=== PATIENT | male | born 1970 | race Caucasian/White ===

== ENCOUNTER 2019-12-05 17:22 | Emergency (ER) | payer MEDICAID ==
[~2019-12-05] VITALS: Ht 185.4 cm; Wt 80.0 kg
[2019-12-05] MEDS ORDERED: LORazepam 2 MG/ML, 1ML IVPush ONE ×2 (17:30→20:00)
--- NOTE | 2019-12-05 17:30 | NUR ---
THIS IS A M PT UNKNOWN NAME OR AGE AT THIS TIME. PT BIB [facility] FOR [facility]ED [facility]. PT WAS AGGRESSIVE AND BITING PERSONEL. ACCORDING TO [facility] PT WAS BROUGHT DOWN BY 4 SALES CLERK SUPERVISOR. HE REPEATEDLY STATED THAT HE WAS EFREM. RECEIVED 400 KETAMINE AND 2 VERSED BY EMS. PT IS CURRENTLY SLEEPING ON GURNEY IN RESTRAINTS FOR HIS SAFETY AND WITH SPIT REED IN PLACE. PLACED ON MONITORS. WILL CONTINUE TO MONITOR.
--- NOTE | 2019-12-05 17:35 | NUR ---
PT IS UNABLE TO ANSWER ASSESSMENT QUESTIONS AT THIS TIME.
--- NOTE | 2019-12-05 17:45 | NUR ---
LAB IN ROOM.
[2019-12-05 18:00] LABS: BASOPHILS # (AUTO) 0.01 x10^3/uL (0-0.1); BASOPHILS % (AUTO) 0 % (0-1); EOSINOPHILS # (AUTO) 0.01 x10^3/uL (0-0.4); EOSINOPHILS % (AUTO) 0 % (1-7); LYMPHOCYTES # (AUTO) 0.83 x10^3/uL (1-3.4); LYMPHOCYTES % (AUTO) 8 % (22-44); MD NO; MEAN CORPUSCULAR HEMOGLOBIN 31.3 pg (27.5-34.5); MEAN CORPUSCULAR HGB CONC 33.5 g/dL (33.2-36.2); MEAN CORPUSCULAR VOLUME 93.5 fL (81-97); MONOCYTES # (AUTO) 0.82 x10^3/uL (0.2-0.8); MONOCYTES % (AUTO) 8 % (2-9); NEUTROPHILS # (AUTO) 9.11 x10^3/uL (1.8-6.8); NEUTROPHILS % (AUTO) 85 % (42-75); PLATELET COUNT 232 x10^3/uL (130-400); RED BLOOD COUNT 3.89 x10^6/uL (4.38-5.82); RED CELL DISTRIBUTION WIDTH 14.5 % (9.4-14.8)
[2019-12-05 18:14] LABS: ALBUMIN 3.2 g/dL (3.4-5.0); ANION GAP 7 mmol/L (5-15); CALCIUM 8.4 mg/dL (8.5-10.1); CHLORIDE 109 mmol/L (98-107); SALICYLATE LEVEL 2.7 mg/dL (2.8-20.0)
[2019-12-05 18:16] LABS: ALANINE AMINOTRANSFERASE 33 U/L (12-78); ALKALINE PHOSPHATASE 94 U/L (45-117); BILIRUBIN,TOTAL 0.6 mg/dL (0.2-1.0); CREATININE 0.94 mg/dL (0.7-1.3); TOTAL PROTEIN 6.8 g/dL (6.4-8.2)
--- NOTE | 2019-12-05 18:20 | NUR ---
PT STARTING TO MOVE AROUND IN BED. NOT ANSWERING QUESTIONS AT THIS TIME. INFORMED PT OF WHERE HE IS AND POC. PT QUICKLY WENT BACK TO SLEEP. VSS. WILL CONTINUE TO MONITOR
[2019-12-05] MEDS ORDERED: PLEASE ENTER ALLERGIES MC SCH (18:30)
[2019-12-05] MEDS ORDERED: LORazepam 2 MG/ML, 1ML ONE ×2 (18:40→19:46)
--- NOTE | 2019-12-05 18:57 | NUR ---
PT MEDICATED PER EMAR. PT RESTING ON GURNEY. KAELN.
[2019-12-05] MEDS ORDERED: ZIPRASIDONE 20 MG INJ IM ONE ×2 (19:45→20:00)
--- NOTE | 2019-12-05 21:03 | NUR ---
REPORT GIVEN TO AUSTIN MAE. TRANSFERED TO ROOM 41.
--- NOTE | 2019-12-05 21:23 | NUR ---
RECEIVED RPT FROM RN, ASSUMED CARE OF PT. MONITOR IN PLACE, 15 MIN CHECKS. PT IN 4 POINT [facility] RESTRAINTS. PT RESTING WITH EYES CLOSED AT THIS TIME.
--- NOTE | 2019-12-05 21:29 | NUR ---
put belongings in lock up. one black backpack, one pt belonging bag. one pocket knife sent to security and cell phone, keys, shoes and full backpack of belongings in there. 2 bags total.
[2019-12-05] MEDS ORDERED: LORazepam 2 MG/ML, 1ML IVPush PRN (22:00)
--- NOTE | 2019-12-05 22:25 | NUR ---
UA OBTAINED STRAIGHT CATH. PT TOLERATED WELL. SAMPLE SENT TO LAB.
[2019-12-05 22:36] LABS: MICROSCOPIC INDICATED
[2019-12-05 22:45] LABS: AMPHETAMINE SCREEN, URINE Positive (Negative); BARBITURATE SCREEN, URINE Negative (Negative); BENZODIAZEPINE SCREEN, URINE Positive (Negative); CANNABINOID SCREEN, URINE Positive (Negative); COCAINE SCREEN, URINE Negative (Negative); METHADONE SCREEN, URINE Negative (Negative); OPIATE SCREEN, URINE Positive (Negative)
--- NOTE | 2019-12-05 23:00 | NUR ---
REPORT FROM CARMELITA MCARTHUR. PT RESTING IN [facility] WITH EYES OPEN. FREQUENT MOVEMENTS OF ARMS/LEGS. SPIT REED IN PLACE. RESTRAINTS X4. +CMS. BP/SPO2/ECG MONITORING IN PLACE. NSR ON MONITOR. RR WNL.
--- NOTE | 2019-12-06 01:12 | NUR ---
PT CONTINUES TO REST IN [facility]. VOLUNTARY MOVEMENTS OF ALL EXTREMITIES NOTED. RLE W SUPERFICIAL WOUNDS, RESTRAINTS RELEASED FROM LLE AND LUE. RUE REMAINS IN RESTRAINTS TO AVOID SELF DC OF IV. RUE LOOSENED. +CMS OF ALL EXTREMITIES. ERP UPDATED. PER ERP, 1L NS HUNG. RESPIRATIOS EVEN AND UNLABORED. ALL VS WNL. SITTER REMAINS PRESENT AND IS UPDATED TO STATUS OF RESTRAINTS. IF PT REMAINS CALM PLAN IS TO RELEASE REMAINING RESTRAINTS.
[2019-12-06] MEDS ORDERED: SODIUM CHLORIDE 0.9%, 500ML IVBOLUS ONE (01:30)
--- NOTE | 2019-12-06 02:02 | NUR ---
REPORT TO CARMELITA VALERO
--- NOTE | 2019-12-06 02:10 | NUR ---
RESTRAINS REMOVED. PT REMAINS CALM, RESTING W/ EYES CLOSED. PT MOSTLY DROWSY, ARROUSABLE TO LIGHT PHYSICAL STIM. RESPIRATIONS EVEN/UNLABORED.
--- NOTE | 2019-12-06 03:30 | NUR ---
PT RESTING WITH EYES CLOSED. NO NEEDS AT THIS TIME. MONITOR IN PLACE. SITTER IN HALLWAY.
--- NOTE | 2019-12-06 04:35 | NUR ---
PT RESTING WITH EYES CLOSED. NO NEEDS AT THIS TIME. MONITOR IN PLACE. SITTER IN HALLWAY.
[2019-12-06] MEDS ORDERED: LORazepam 2 MG/ML, 1ML ONE (05:05)
--- NOTE | 2019-12-06 05:09 | NUR ---
PT URINATING ON FLOOR AGAIN. PT SOAKED FROM OWN URING. ALL CLOTHING REMOVED, PLACED IN HOSPITAL GOWN, PARTIAL BB GIVEN. PT QUITE ANXIOUS AND IN PAIN. C/O MUSCLE CRAMPS. MEDICATED WITH ATIVAN. ALL NEW BEDDING AND BEAR HUGGER PLACED FOR COMFORT. PT RESTING WITH EYES CLOSED NOW. NO OTHER NEEDS AT THIS TIME.
--- NOTE | 2019-12-06 07:09 | NUR ---
REPORT RECIEVED FROM ANDERSON RN, PT RESTING ON [facility]. NAD NOTED AT THIS TIME, VISIBLE CHEST RISE AND FALL NOTED.
--- NOTE | 2019-12-06 07:12 | NUR ---
Note [place] in ED - 12/06/19 at 0714 by JUAN REPORT RECIEVED FROM ANDERSON RN, PT IN [facility], REQUESTING SHOWER THIS AM. BREAKFAST TRAY ORDERED WILL ALLOW PT SHOWER AFTER BREAKFAST, PT AGGREEABLE TO THIS.
--- NOTE | 2019-12-06 08:45 | NUR ---
PT CONTINUES TO REST ON GURNEY, ON MONITORING [facility] PER NOC RN. PT WITH VISIBLE CHEST RISE AND FALL. NOT WAKING FOR MEAL TRAY AT THIS TIME
--- NOTE | 2019-12-06 10:33 | NUR ---
PT REMAINS RESTING ON GURNEY, VISIBLE CHEST RISE AND FALL NOTED. VSS. NAD NOTED
--- NOTE | 2019-12-06 12:18 | NUR ---
PT ARROUSABLE TO VERBAL STIM, ALTHOUGH REMAIN DROWSY AND FALLS QUICKLY BACK TO SLEEP.
--- NOTE | 2019-12-06 13:19 | NUR ---
SHANNON JIANG ATTEMPTED TO EVAL PT, PT STILL DROWSY AND UNABLE TO PARTICIPATE AT THIS TIME, TELEGRAPH OFFICE MANAGER TO ATTEMPT AT LATER TIME.
--- NOTE | 2019-12-06 15:06 | NUR ---
PT CONTINUES TO REST ON [place]ARRISH, PT WOKE AND ASKED FOR A BLANKET, PT PROVIDED WARM BLANKET. VSS, KAEL NOTED
--- NOTE | 2019-12-06 17:31 | NUR ---
PT RESTING ON GURNEY, VISIBLE CHEST RISE AND FALL NOTED. NAD NOTED AT THIS TIME. MEAL TRAY ORDERED FOR PT. WILL ATTEMPT TO ASSIST PT TO EAT, PT DOES REMAIN DROWSY
--- NOTE | 2019-12-06 18:28 | NUR ---
PACKET FAXED TO [facility], [facility] AND [facility]
--- NOTE | 2019-12-06 19:04 | NUR ---
REPORT RECEIVED FROM CARMELITA SHANE. PT PROVIDED DINNER MEAL TRAY. PT DENIES FURTHER NEEDS AT THIS TIME. UPDATED ON POC. ROOM SECURED, SITTER IN HALLWAY WITHIN LINE OF SIGHT. ALL SAFETY MEASURES IN PLACE.
--- NOTE | 2019-12-06 19:36 | NUR ---
Patient going to [facility], accepting Dr. Glover. [facility] called as has [facility] Soni. [facility] until [facility] contacts [facility].
--- NOTE | 2019-12-06 19:45 | NUR ---
REPORT CALLED TO [facility].
[2019-12-06 19:48] VITALS: BP 122/75
--- NOTE | 2019-12-06 20:54 | NUR ---
CODY auth code: [id number]
--- NOTE | 2019-12-06 21:21 | NUR ---
PT RESTING ON GURNEY WITH EYES CLOSED. SITTER IN HALLWAY WITHIN LINE OF SIGHT.
== END 2019-12-06 21:50 ==
LOC: EDBD 17:22 → ED 20:59 → MERGE 20:59 → ED 12-06 21:50
DX: F23 Brief psychotic disorder (principal); R45.851 Suicidal ideations; F15.10 Other stimulant abuse, uncomplicated
CPT/HCPCS: 36415; 80053; 80307; 81001; 85025; 99285; J2060; J3486; J7040; 96361; 96372; 96374; 96376

== ENCOUNTER 2020-02-19 18:34 | Emergency (ER) | payer MEDICAID ==
[~2020-02-19] VITALS: Ht 190.5 cm; Wt 95.0 kg
[2020-02-19 18:40] VITALS: BP 138/78
--- NOTE | 2020-02-19 18:50 | NUR ---
TASK RN: 4 PT RESTRAINT ORDER SIGNED BY . Q15 MIN CHECKS INITIATED.
== END 2020-02-19 19:48 | disposition home or self-care (01) ==
LOC: ED 19:07
DX: L02.01 Cutaneous abscess of face (principal); F15.959 Other stimulant use, unspecified with stimulant-induced psychotic disorder, unspecified; Z91.81 History of falling
CPT/HCPCS: 99283; 99285

== ENCOUNTER 2020-02-19 20:55 | Emergency (ER) | payer MEDICAID | END 2020-02-19 21:41 | LOC: ED 21:35 | DX: F15.90 Other stimulant use, unspecified, uncomplicated (principal); Z02.89 Encounter for other administrative examinations | CPT/HCPCS: 36415; 86705; 86706; 86803; 87340; 87521; 87806; 99283; G0475 ==

== ENCOUNTER 2020-11-20 12:14 | Emergency (ER) | payer MEDICAID ==
[~2020-11-20] VITALS: Ht 182.9 cm; Wt 80.0 kg
[2020-11-20] MEDS ORDERED: SODIUM CHLORIDE 0.9% 1,000ML IVBOLUS ONE (12:30)
[2020-11-20] MEDS ORDERED: ZIPRASIDONE 20 MG INJ IM ONE ×2 (12:30→13:16)
--- NOTE | 2020-11-20 12:30 | NUR ---
+CMS OF EXT'S INTACT AT CHECK. PT STATES HE CAN FEEL HIS EXTREMITIES AND HAS DISCOMFORT IN HIS RIGHT WRIST.
[2020-11-20 12:41] VITALS: BP 106/72
--- NOTE | 2020-11-20 12:45 | NUR ---
+ CMS INTACT TO ALL EXTREMITIES
--- NOTE | 2020-11-20 12:46 | NUR ---
PT BIB EMS FOR PSYCH BEHAVIOR AT [facility] [employer]. PT WAS IN CUSTODY OF PD WHEN EMS ARRIVED AND PT WAS PLACED IN RESTRAINTS BY EMS. PT PLACED IN HARD RESTRAINTS BY SECURITY UPON PT ARRIVAL. PER PD PT HAD A RAZOR BLADE TO HIS THROAT AND WAS ATTEMPTING TO BURN MCDONALDS DOWN.
--- NOTE | 2020-11-20 12:47 | NUR ---
PD BEDSIDE WITH PT
--- NOTE | 2020-11-20 13:00 | NUR ---
+ CMS TO ALL EXT'S
--- NOTE | 2020-11-20 13:15 | NUR ---
+ CMS TO ALL EXT'S
[2020-11-20 13:20] LABS: BASOPHILS % (AUTO) 1 % (0-1); EOSINOPHILS % (AUTO) 0 % (1-7); LYMPHOCYTES % (AUTO) 11 % (22-44); MD NO; MEAN CORPUSCULAR HGB CONC 34.6 g/dL (33.2-36.2); MEAN PLATELET VOLUME 8.3 fL (7.4-10.4); MONOCYTES % (AUTO) 8 % (2-9); NEUTROPHILS % (AUTO) 79 % (42-75); PLATELET COUNT 215 x10^3/uL (130-400); RED BLOOD COUNT 3.55 x10^6/uL (4.38-5.82); RED CELL DISTRIBUTION WIDTH 14.2 % (9.4-14.8)
[2020-11-20 13:24] LABS: CHLORIDE 110 mmol/L (98-107)
[2020-11-20 13:31] LABS: ALANINE AMINOTRANSFERASE 20 U/L (12-78); ALBUMIN 3.8 g/dL (3.4-5.0); ALKALINE PHOSPHATASE 92 U/L (45-117); ANION GAP 6 mmol/L (5-15); BILIRUBIN,TOTAL 0.4 mg/dL (0.2-1.0); CREATININE 1.06 mg/dL (0.7-1.3)
--- NOTE | 2020-11-20 13:55 | NUR ---
PT RELEASED TO PD CUSTODY AFTER MEDICAL CLEARANCE BY DR MEDRANO. SECURITY CONTACTED ABOUT RELEASING PT FROM RESTRAINTS.
--- NOTE | 2020-11-20 14:13 | NUR ---
PT REC'VD DISCHARGE INSTRUCTIONS AND EDUCATION. PT HAD NO QUESTIONS. DISCHARGE HANDED TO [facility] OFFICER WHO HAD PT IN CUSTODY. PT ASSISTED IN WHEELCHAIR BY SECURITY AND [facility] TO [facility] CAR FOR TRANSPORT.
== END 2020-11-20 14:19 | disposition home or self-care (01) ==
LOC: EDBD 12:14 → MERGE 14:08 → ED 14:08
DX: R41.82 Altered mental status, unspecified (principal); R44.1 Visual hallucinations; R06.02 Shortness of breath; R00.9 Unspecified abnormalities of heart beat
CPT/HCPCS: 36415; 71045; 80053; 80299; 80320; 80329; 85025; 96360; 96372; 99284; J3486; J7030; G0480